=== PATIENT | male | born 1955 | race Caucasian/White ===

== ENCOUNTER 2017-01-13 18:18 | Emergency (ER) | payer SELFPAY ==
[2017-01-13] MEDS ORDERED: Sodium Chloride 0.9% 1,000 ML IV ONE (19:05)
--- NOTE | 2017-01-13 19:09 | EDM.PDOC ---
ED HPI GENERAL MEDICAL PROBLEM - General Chief Complaint: Abdominal Pain Stated Complaint: STOMACH PAIN [phone] Time Seen by Provider: 01/13/17 19:04 Source of Information: Reports: Patient History Limitations: Reports: No Limitations - History of Present Illness INITIAL COMMENTS - FREE TEXT/NARRATIVE: 61 yo white male c/o LLQ abdomen pain since 3pm today w/ no N&V and No Diarrhea. Also no Fever or chills Onset: Today Onset Date: 01/13/17 Onset Time: 15:00 Duration: Hour(s): Location: Reports: Abdomen (LLQ) Quality: Reports: Ache Severity: Moderate Improves with: Reports: None Worsens with: Reports: None Associated Symptoms: Reports: No Other Symptoms Left Abdominal Pain Score (Numeric/FACES): 8 - Related Data Allergies Allergy/AdvReac Type Severity Reaction Status Date / Time No Known Allergies Allergy Verified 01/13/17 18:35 Home Meds: Home Meds . [No Known Home Meds] 01/13/17 [History] Past Medical History HEENT History: Reports: None Cardiovascular History: Reports: None Respiratory History: Reports: None Gastrointestinal History: Reports: None Genitourinary History: Reports: None Musculoskeletal History: Reports: None Neurological History: Reports: None Psychiatric History: Reports: None Endocrine/Metabolic History: Reports: None Hematologic History: Reports: None Immunologic History: Reports: None Oncologic (Cancer) History: Reports: None Dermatologic History: Reports: None - Past Surgical History HEENT Surgical History: Reports: None Cardiovascular Surgical History: Reports: None GI Surgical History: Reports: None Musculoskeletal Surgical History: Reports: None Social & Family History - Tobacco Use Smoking Status *Q: Current Every Day Smoker Years of Tobacco use: 40 Packs/Tins Daily: 1 - Caffeine Use Caffeine Use: Reports: Coffee - Recreational Drug Use Recreational Drug Use: No ED ROS GENERAL - Review of Systems Review Of Systems: See Below Constitutional: Reports: No Symptoms HEENT: Reports: No Symptoms Respiratory: Reports: No Symptoms Cardiovascular: Reports: No Symptoms Endocrine: Reports: No Symptoms GI/Abdominal: Reports: Abdominal Pain (LLQ) : Reports: No Symptoms Musculoskeletal: Reports: No Symptoms Skin: Reports: No Symptoms Neurological: Reports: No Symptoms Psychiatric: Reports: No Symptoms Hematologic/Lymphatic: Reports: No Symptoms Immunologic: Reports: No Symptoms ED EXAM, GI/ABD - Physical Exam Exam: See Below Exam Limited By: No Limitations General Appearance: Alert, WD/WN, No Apparent Distress Eyes: Bilateral: EOMI Ears: Normal External Exam Nose: Normal Inspection Throat/Mouth: Normal Inspection Head: Atraumatic Neck: Normal Inspection Respiratory/Chest: No Respiratory Distress Cardiovascular: Normal Peripheral Pulses GI/Abdominal Exam: Soft, Tender (LLQ on deep palpation w/o signs of peritonitis and no rebound), Abnormal Bowel Sounds (decreased) (Male) Exam: No Hernia Back Exam: Normal Inspection Extremities: Normal Inspection, Normal Range of Motion Neurological: Alert, Oriented, CN II-XII Intact Psychiatric: Normal Affect, Normal Mood Skin Exam: Warm, Dry, Intact, Normal Color Lymphatic: No Adenopathy Course - Vital Signs Text/Narrative:: Abd xray and Abdmen CT show Left Kidney stone 2mm at UV junction Last Recorded V/S: Last Vital Signs Temp 36.9 C 01/13/17 20:00 Pulse 58 L 01/13/17 20:00 Resp 18 01/13/17 20:00 BP 122/72 01/13/17 20:00 Pulse Ox 98 01/13/17 20:00 - Orders/Labs/Meds Orders: Active Orders 24 hr Category Date Time Status Abdomen Pelvis wo Cont [CT] Urgent Exams 01/13/17 21:18 Taken Labs: Laboratory Tests 01/13/17 01/13/17 01/13/17 Range/Units 19:34 19:34 20:46 WBC 10.4 H (5.0-10.0) 10^3/uL RBC 4.90 (4.6-6.2) 10^6/uL Hgb 15.0 (14.0-18.0) g/dL Hct 44.7 (40.0-54.0) % MCV 91.2 (80-100) fL MCH 30.6 (27.0-34.0) pg MCHC 33.6 (33.0-35.0) g/dL Plt Count 174 (150-450) 10^3/uL Neut % (Auto) 81.2 H (42.2-75.2) % Lymph % (Auto) 12.3 L (20.5-50.1) % [place] % (Auto) 5.7 (2-8) % Eos % (Auto) 0.4 L (1.0-3.0) % Baso % (Auto) 0.4 (0.0-1.0) % Sodium 137 (135-145) mmol/L Potassium 3.9 (3.6-5.0) mmol/L Chloride 100 L (101-111) mmol/L Carbon Dioxide 27.0 (21.0-31.0) mmol/L Anion Gap 13.9 BUN 12 (7-18) mg/dL Creatinine 1.0 (0.6-1.3) mg/dL Est Cr Clr Drug Dosing 61.23 mL/min Estimated GFR (MDRD) > 60 BUN/Creatinine Ratio 12.00 Glucose 134 H (74-105) mg/dL Calcium 9.0 (8.4-10.2) mg/dl Total Bilirubin 0.8 (0.2-1.0) mg/dL AST 26 (10-42) IU/L ALT 20 (10-60) IU/L Alkaline Phosphatase 88 (42-121) IU/L Total Protein 7.1 (6.7-8.2) g/dl Albumin 4.3 (3.2-5.5) g/dl Globulin 2.8 Albumin/Globulin Ratio 1.54 Amylase 73 (28-100) U/L Urine Color Yellow (YELLOW) Urine Appearance Slightly cloudy (CLEAR) Urine pH 6.0 (5.0-9.0) Ur Specific [place] 1.025 (1.005-1.030) Urine Protein Negative (NEGATIVE) Urine Glucose (UA) Negative (NEGATIVE) Urine Ketones Negative (NEGATIVE) Urine Occult Blood Large H (NEGATIVE) Urine Nitrite Negative (NEGATIVE) Urine Bilirubin Negative (NEGATIVE) Urine Urobilinogen 0.2 (0.2-1.0) mg/dL Ur Leukocyte Esterase Negative (NEGATIVE) Urine RBC 50-75 H /HPF Urine WBC 0-5 (0-5/HPF) /HPF Ur Epithelial Cells Rare /HPF Urine Bacteria Rare (0-FEW/HPF) /HPF Urine Mucus Rare /LPF Meds: Medications Discontinued Medications Generic Name Dose Route Start Last Admin Trade Name Freq PRN Reason Stop Dose Admin Sodium Chloride 1,000 mls @ 999 mls/hr 01/13/17 19:05 01/13/17 19:39 Normal Saline IV 01/13/17 20:05 999 mls/hr .BOLUS ONE Administration Ketorolac Tromethamine 30 mg 01/13/17 21:19 01/13/17 21:52 Toradol IVPUSH 01/13/17 21:20 30 mg ONETIME ONE Administration Nitrofurantoin Macrocrystals 100 mg 01/13/17 22:10 01/13/17 22:13 Macrobid PO 01/13/17 22:11 Not Given ONETIME ONE Tamsulosin HCl 0.4 mg 01/13/17 22:07 01/13/17 22:13 Flomax PO 01/13/17 22:08 0.4 mg ONETIME ONE Administration Departure - Departure Time of Disposition: 22:12 Disposition: Home, Self-Care 01 Condition: Good Clinical Impression: Kidney stone on left side Constipation Qualifiers: Constipation type: unspecified constipation type Qualified Code(s): K59.00 - Constipation, unspecified - Discharge Information Referrals: PCP,None [Primary Care Provider] - Forms: ED Department Discharge Additional Instructions: Rest Increase intake of WATER approx. 51 ounces each day For the left side kidney stone: FLOMAX .4mg QD # 10 For the pain of the Left kidney stone: TRAMADOL 50mg TID # 30 NAPROXSYN 500mg BID # 30 FOR THE INCREASED BOWEL STOOL: Increase intake of Fresh Fruits and Vegetables Every day chew 3-4 dried prunes and apricots to regulate bowel function Stop All Constipating foods ( Dairy, Bread, Meats and Processed Foods) TODAY: DRINK ONE BOTTLE OF MAGNESIUM CITRATE DRINK 3 GLASSES OF SLIGHT WARM WATER TRY FLEET ENEMA AND HOLD FOR 15 MINS. F/U w/ PCP - My Orders Last 24 Hours: My Active Orders 01/13/17 21:18 Abdomen Pelvis wo Cont [CT] Urgent - Assessment/Plan Last 24 Hours: My Active Orders 01/13/17 21:18 Abdomen Pelvis wo Cont [CT] Urgent
[2017-01-13 20:01] LABS: CHLORIDE,CL 100 mmol/L (101-111); SODIUM,NA 137 mmol/L (135-145)
[2017-01-13] MEDS ORDERED: Ketorolac 30 MG/ML SDV IVPUSH ONE (21:19)
[2017-01-13] MEDS ORDERED: Tamsulosin 0.4 MG Cap.ER PO ONE (22:07)
[2017-01-13] MEDS ORDERED: Nitrofurantoin Monohydrate/Macrocrystalline 100 MG Cap PO ONE (22:10)
== END 2017-01-13 22:40 | disposition home or self-care (01) ==
LOC: DL.ED 18:18
DX: N20.2 Calculus of kidney with calculus of ureter (principal); K59.00 Constipation, unspecified; F17.210 Nicotine dependence, cigarettes, uncomplicated
CPT/HCPCS: 36415; 74020; 74176; 80053; 81001; 82150; 85025; 96361; 96374; 99284; A9270; J1885; J7030